=== PATIENT | female | born 1980 | race African-American/Black ===

== ENCOUNTER 2019-12-12 23:45 | Emergency (ER) | payer MEDICAID, OTHER ==
[~2019-12-12] VITALS: Ht 162.6 cm; Wt 84.0 kg
[2019-12-13] MEDS ORDERED: ACETAMINOPHEN 325MG TABLET PO STA (01:03)
[2019-12-13] MEDS ORDERED: KETOROLAC 60MG/2ML VIAL IM STA (01:03)
[2019-12-13 02:12] LABS: CLARITY URINE CLEAR (CLEAR); COLOR URINE YELLOW (YELLOW); KETONES URINE 1+ (NEGATIVE); LEUKOCYTE ESTERASE URINE TRACE (NEGATIVE); NITRITE URINE NEGATIVE (NEGATIVE); OCCULT BLOOD URINE NEGATIVE (NEGATIVE); PROTEIN URINE NEGATIVE (NEGATIVE); SPECIFIC GRAVITY URINE 1.022 (1.005-1.030); UROBILINOGEN URINE 0.2 E.U./dL (0.2-1.0)
[2019-12-13] MEDS ORDERED: TRAMADOL 50MG TABLET PO STA (03:43)
[2019-12-13 03:50] VITALS: BP 128/76
== END 2019-12-13 03:58 | disposition home or self-care (01) ==
LOC: ER 23:45
DX: M54.5 Low back pain (principal)
CPT/HCPCS: 81003; 81025; 96372; 99283; J1885

== ENCOUNTER 2024-05-07 09:29 | Emergency (ER) | payer MEDICAID ==
[~2024-05-07] VITALS: Ht 167.6 cm; Wt 62.0 kg
[~2024-05-07 09:29] MED LIST: IBUP-2029 MT; LIDO700A30 TP; TOPUD MT
[2024-05-07 09:32] VITALS: O2SAT 99
[2024-05-07 09:48] VITALS: BP 124/69; PULSE 122; RESP 20; TEMP 36.6; O2SAT 98
[2024-05-07] MEDS ORDERED: ACET-2708 MT (10:56)
== END 2024-05-07 12:50 | disposition home or self-care (01) ==
LOC: ER 09:29
DX: M79.672 Pain in left foot (principal); Z88.0 Allergy status to penicillin
CPT/HCPCS: 29515; 73630; 81025; 99283; A6449